=== PATIENT | male | born 1985 | race Caucasian/White ===

== ENCOUNTER → 2024-12-12 14:36 | Outpatient (REF) | payer OTHER, SELFPAY | LOC: RCS 14:36 | PROVIDERS: ATTENDING PHYSICIAN Internal Medicine Cardiovascular Disease; FAMILY PHYSICIAN Family Medicine | DX: Q24.9 Congenital malformation of heart, unspecified (principal); I42.9 Cardiomyopathy, unspecified; Q23.1 Congenital insufficiency of aortic valve | CPT/HCPCS: 93306; Q9950 ==

== ENCOUNTER → 2025-06-12 07:42 | Outpatient (REF) | payer OTHER, SELFPAY | LOC: HWRAD 07:42 | PROVIDERS: ATTENDING PHYSICIAN Physician Assistant; FAMILY PHYSICIAN Family Medicine | DX: R30.0 Dysuria (principal); N39.0 Urinary tract infection, site not specified | CPT/HCPCS: 76770 ==